=== PATIENT | female | born 1950 | race American Indian/Alaskan Native ===

== ENCOUNTER 2018-01-08 08:02 | Emergency (ER) | payer MEDICARE, BC ==
[2018-01-08 08:43] VITALS: BMI 35.9
[2018-01-08 08:57] VITALS: RESP 18; TEMP 97.9
[2018-01-08 09:31] VITALS: O2SAT 100
--- NOTE | 2018-01-08 09:33 | ED PDOC ---
Arrival/HPI - General Time Seen by Provider: 01/08/18 08:34 - History of Present Illness Narrative History of Present Illness (Text): 67 y/o F p/w dizziness since this morning. Describes as spinning sensation, worse with moving head, associated with N/V. Patient here before for same, has seen PMD, neurology, ENT for same, states has not taken meclizine for a long time. Denies asymmetric weakness or numbness, aphasia, slurred speech, vision change. Denies fever, chest pain, dyspnea. Recently treated with ear drops by PMD's office. Past Medical History - Infectious Disease Hx of Infectious Diseases: None - Tetanus Immunization Tetanus Immunization: Unknown - Reproductive Menopause: Yes - Cardiac Hx Cardiac Disorders: Yes - Pulmonary Hx Respiratory Disorders: Yes Hx Sleep Apnea: Yes Other/Comment: sleep apnea using c-pap at night - Neurological Hx Neurological Disorder: Yes (RIGHT SIDED WEAKNESS 07-18-14) Hx Dizziness: Yes - HEENT Hx HEENT Disorder: Yes Hx Glaucoma: Yes Other/Comment: had glaucoma surgery ou - Renal Hx Renal Disorder: No - Endocrine/Metabolic Hx Endocrine Disorders: Yes (DIABETES BORDERLINE) - Hematological/Oncological Hx Blood Disorders: No - Musculoskeletal/Rheumatological Hx Musculoskeletal Disorders: Yes (ANKLE FX) Hx Arthritis: Yes Hx Falls: Yes Hx Fractures: Yes - Gastrointestinal Hx Gastrointestinal Disorders: Yes (HERNIA WITH SURGERY) - Genitourinary/Gynecological Hx Genitourinary Disorders: No - Psychiatric Hx Psychophysiologic Disorder: Yes (SMOKE H/O A TEENAGER,OCCASIONAL DRINKS) Hx Substance Use: No - Surgical History Hx Eye Surgery: Yes (glaucoma sx ou) - Anesthesia Hx Anesthesia: Yes Hx Anesthesia Reactions: No Hx Malignant Hyperthermia: No - Suicidal Assessment Feels Threatened In Home Enviroment: No Family/Social History Family/Social History: No Known Family HX Smoking Status: Former Smoker Hx Alcohol Use: Yes (OCCASIONAL) Hx Substance Use: No Hx Substance Use Treatment: No Allergies/Home Meds Allergies/Adverse Reactions: Allergies No Known Allergies Allergy (Verified 07/18/14 07:33) Home Medications: Home Meds Medication Instructions Recorded Confirmed Rosuvastatin Calcium [Crestor] 20 mg PO DAILY 07/18/14 01/08/18 Review of Systems - Physician Review All systems were reviewed & negative as marked: Yes - Review of Systems Constitutional: absent: Fevers Respiratory: absent: SOB Physical Exam - Physical Exam Narrative Physical Exam (Text): Gen: NAD. Laying in bed still with eyes closed Head: NC/AT Eyes: PERRL. Nystagmus. ENT: TMs normal Neck: Supple Chest: No tenderness CV: Regular rate Lungs: CTA b/l Abd: Soft, NT Extremities: No edema Skin: no rash Neuro: Alert Vital Signs Temp Pulse Resp BP Pulse Ox 01/08/18 09:30 68 18 124/90 100 01/08/18 08:51 97.9 F 72 18 158/81 H 96 01/08/18 08:45 98.1 F 64 17 133/89 98 Medical Decision Making ED Course and Treatment: Patient with chronic vertigo, had undergone CVA work up in past including negative MRI last year. Will administer meclizine here and reassess. 01/08/18 11:41 Patient improved. Steady gait. FTN and HTS normal. Patient has meclizine at home. Will discharge home, instructed to return to ED for worsening weakness, numbness, slurred speech, headache, vision change, or any other neurological deficit. - Medication Orders Current Medication Orders: Discontinued Medications Meclizine HCl (Antivert) 50 mg PO STAT STA Stop: 01/08/18 09:11 Last Admin: 01/08/18 09:29 Dose: 50 mg Disposition/Present on Arrival - Present on Arrival Any Indicators Present on Arrival: No History of DVT/PE: No History of Uncontrolled Diabetes: No Urinary Catheter: No History of Decub. Ulcer: No History Surgical Site Infection Following: None - Disposition Have Diagnosis and Disposition been Completed?: Yes Diagnosis: Vertigo Disposition: HOME/ ROUTINE Disposition Time: 11:43 Patient Plan: Discharge Condition: STABLE Discharge Instructions (ExitCare): Dizziness, Nonvertigo, (DC) Referrals: Jeremy Milligan MD [Primary Care Provider] - Follow up with primary
[2018-01-08 12:10] VITALS: BP 125/87; PULSE 70
--- NOTE | 2018-01-09 13:02 | CARD ---
APPROVED REPORT EKG Measurement Heart [id number] <Conclusion> Normal sinus rhythm Voltage criteria for left ventricular hypertrophy
== END 2018-01-08 11:46 | disposition home or self-care (01) ==
LOC: ED 08:02
DX: R42 Dizziness and giddiness (principal)

== ENCOUNTER 2018-12-24 08:39 | Emergency (ER) | payer MEDICARE, BC | END 2018-12-24 10:38 | disposition home or self-care (01) | LOC: ED 08:39 ==

== ENCOUNTER 2019-01-16 13:41 | Outpatient (CLI) | payer MEDICARE, BC | END 2019-01-16 13:42 | disposition home or self-care (01) | LOC: RAD 13:41 ==